=== PATIENT | female | born 1930 | race Caucasian/White ===

== ENCOUNTER → 2016-07-04 | Outpatient (CLI) | payer MEDICARE ==
--- NOTE | 2016-07-04 09:46 | US ---
EXAM DESCRIPTION: US BREAST UNILATERAL CLINICAL HISTORY: New mammographic nodule medial right breast 4 o'clock. COMPARISON: Screening evaluation 03/2016. FINDINGS: Directed ultrasound exam confirms the new mammographic nodule to correspond to a benign intramammary 4 mm lymph node. No sonographically suspicious finding. IMPRESSION: Benign exam. Mammographic nodule corresponds to a reactive lymph node right breast 4 o'clock. BIRAD CATEGORY: 2 BENIGN RECOMMENDATION: Routine annual mammography. Findings and recommendations were communicated to the patient by the technologist. Electronically signed by: Joyce Bauer 07/04/2016 09:44
== END ==
LOC: MAMMO 09:14
PROVIDERS: ATTEND Family Medicine
DX: R92.8 Other abnormal and inconclusive findings on diagnostic imaging of breast (principal)

== ENCOUNTER → 2016-09-24 | Outpatient (CLI) | payer MEDICARE | END | disposition home or self-care (01) | LOC: GMAL 10:34 | PROVIDERS: ATTEND Family Medicine | DX: D51.3 Other dietary vitamin B12 deficiency anemia (principal); Z79.899 Other long term (current) drug therapy; E55.9 Vitamin D deficiency, unspecified ==

== ENCOUNTER → 2017-01-16 | Outpatient (CLI) | payer MEDICARE | END | disposition home or self-care (01) | LOC: GMAL 10:32 | PROVIDERS: ATTEND Family Medicine | DX: D51.3 Other dietary vitamin B12 deficiency anemia (principal); R53.82 Chronic fatigue, unspecified; E55.9 Vitamin D deficiency, unspecified ==

== ENCOUNTER → 2017-02-13 | Outpatient (CLI) | payer MEDICARE | END | disposition home or self-care (01) | LOC: GMAL 16:37 | PROVIDERS: ATTEND Family Medicine | DX: R53.82 Chronic fatigue, unspecified (principal) ==

== ENCOUNTER → 2017-05-20 | Outpatient (CLI) | payer MEDICARE | END | disposition home or self-care (01) | LOC: GMAJS 11:52 | PROVIDERS: ATTEND Physician Assistant | DX: M79.89 Other specified soft tissue disorders (principal) ==

== ENCOUNTER → 2017-07-09 | Outpatient (CLI) | payer MEDICARE ==
--- NOTE | 2017-07-14 10:53 | MAM ---
EXAM DESCRIPTION: 3D Screening BILATERAL : Digital Mammography. CLINICAL HISTORY: 86 years Female SCREENING . No complaints. No family history breast cancer. Postmenopausal. No HRT. COMPARISON: 2-D digital screening bilateral studies 03/05/2016 and 06/29/2014. Report from prior examination also reviewed. TECHNIQUE: Bilateral CC and MLO projection full-field images, 3-D tomosynthesis digital mammographic technique. Also bilateral synthesized CC/ MLO full-field images. CAD not utilized. FINDINGS: The breast parenchymal density pattern is: Heterogeneously dense breast tissue, which may obscure small masses. No skin thickening or nipple retraction bilateral solitary microcalcifications. Skin mole superior outer anterior right breast. Focal asymmetry 1130 clock position middle third right breast is stable. No focal, stellate mass or density, focal asymmetry , and no suspicious microcalcifications bilaterally. Stable mammograms compared to prior study, taking into account differences in mammographic technique IMPRESSION: BI-RADS CATEGORY: 2 - BENIGN FINDINGS. FOLLOW UP: Routine digital bilateral screening, one year interval from July 2017. Written communication explaining the IMPRESSION and follow-up, will be mailed to the patient and referring health care provider. According to the [employer], yearly mammograms are recommended starting at age 40 and continuing as long as a woman is in good health. Any breast change noted on a breast self-exam should be reported promptly to the patient's healthcare provider. Breast MRI is recommended for women with an approximately 20-25% or greater lifetime risk of breast cancer, including women with a strong family history of breast or ovarian cancer and women who have been treated for Hodgkin's disease. A negative mammographic report should not delay tissue diagnosis in patients with significant clinical history or physical findings. Extremely dense breast tissue limits the sensitivity of digital mammography. Electronically signed by: Santos Watson MD 07/14/2017 10:53 AM [facility]
== END ==
LOC: MAMMO 12:38
PROVIDERS: ATTEND Family Medicine
DX: Z12.31 Encounter for screening mammogram for malignant neoplasm of breast (principal)

== ENCOUNTER → 2017-10-16 | Outpatient (CLI) | payer MEDICARE | LOC: NC 09:11 | PROVIDERS: ATTEND Family Medicine | DX: E78.5 Hyperlipidemia, unspecified (principal); E55.9 Vitamin D deficiency, unspecified; D51.9 Vitamin B12 deficiency anemia, unspecified; F01.50 Vascular dementia, unspecified severity, without behavioral disturbance, psychotic disturbance, mood disturbance, and anxiety; M17.0 Bilateral primary osteoarthritis of knee; M43.06 Spondylolysis, lumbar region ==

== ENCOUNTER → 2018-03-05 | Outpatient (CLI) | payer MEDICARE | LOC: GMAL 09:50 | PROVIDERS: ATTEND Family Medicine | DX: E55.9 Vitamin D deficiency, unspecified (principal); D51.9 Vitamin B12 deficiency anemia, unspecified; E78.5 Hyperlipidemia, unspecified; R63.4 Abnormal weight loss; M10.9 Gout, unspecified ==

== ENCOUNTER 2018-05-04 07:23 | Inpatient (IN) | payer MEDICARE ==
--- NOTE | 2018-05-04 07:42 | ED.PDOC ---
History of Present Illness - General Chief Complaint: General Stated Complaint: LLE pain and swelling Time Seen by Provider: 05/04/18 07:33 Source: family Exam Limitations: no limitations - History of Present Illness Initial Comments: PT BROUGHT IN BY EMS DUE TO LLE PAIN AND SWELLING X 1 DAY. PTS STATES THAT PT STARTED COMPLAINING OF PAIN IN THE LLE YESTERDAY BUT WAS ABLE TO AMBULATE FINE. PT WAS FOUND IN THE BATHROOM THIS MORNING IN SEVERE PAIN AND UNABLE TO AMBULATE BECAUSE OF IT. NO FALL WAS REPORTED. PT HAS DEMENTIA, THEREFORE, ROS AND HPI IS LIMITED. Timing/Duration: 24 hours, getting worse Severity: severe Improving Factors: immobilization Worsening Factors: movement Allergies/Adverse Reactions: Allergies milk Adverse Reaction (Uncoded 05/04/18 07:35) Home Medications: Ambulatory Orders Donepezil Hydrochloride [Donepezil HCl] 10 mg PO DAILY 05/04/18 Memantine HCl [Memantine Hydrochloride E] 28 mg PO DAILY 05/04/18 Review of Systems - Review of Systems Constitutional: Denies: chills, fever EENTM: Denies: nose congestion, throat pain Respiratory: Denies: cough, short of breath Cardiology: Denies: chest pain, syncope Gastrointestinal/Abdominal: Denies: diarrhea, vomiting Genitourinary: States: see HPI Musculoskeletal: States: see HPI, muscle pain. Denies: joint pain Skin: Denies: change in color, rash Neurological: States: see HPI Endocrine: States: see HPI Hematologic/Lymphatic: States: see HPI Past Medical History (General) - Patient Medical History Hx Dementia: Yes Hx Asthma: No Hx of COPD: No Hx Cardiac Disorders: No Hx Congestive Heart Failure: No Hx Hypertension: No Hx Diabetes: No Surgical History: Hysterectomy - Vaccination History Hx Influenza Vaccination: Yes Hx Pneumococcal Vaccination: Yes - Social History Hx Alcohol Use: No Hx Substance Use: No Hx Substance Use Treatment: No Hx Depression: No Family Medical History - Family History Mother Family History: Unknown Physical Exam - Physical Exam General Appearance: Alert, No apparent distress, Well Developed, Well Groomed, Well Hydrated Eye Exam: bilateral normal Ears, Nose, Throat: hearing grossly normal Neck: supple, normal inspection Respiratory: lungs clear, normal breath sounds, no respiratory distress Cardiovascular/Chest: regular rate, rhythm, no murmur Peripheral Pulses: dorsalis pedis,left: 2+, posterior tibialis,left: 2+ Gastrointestinal/Abdominal: non tender, soft Back Exam: normal inspection, no vertebral tenderness Extremity: other - TTP OF THE LEFT CALF, NO SIGNIFICANT SWELLING NOTED Neurologic: alert, disoriented x 3 Skin Exam: normal color, warm/dry Progress - Progress Progress: 05/04/18 09:33 PT RESTING COMFORTABLY, LABS AND DIAGNOSTICS DISCUSSED WITH AT BEDSIDE. - Results/Orders Results/Orders: Laboratory Tests 05/04/18 05/04/18 05/04/18 08:15 08:15 08:15 WBC 8.2 RBC 4.44 Hgb 13.0 Hct 40.6 MCV 91.5 MCH 29.3 MCHC 32.1 L RDW 13.6 Plt Count 232 MPV 8.0 Absolute Neuts (auto) 4.80 Absolute Lymphs (auto) 2.00 Absolute Monos (auto) 0.90 H Absolute Eos (auto) 0.30 Absolute Basos (auto) 0.10 Neutrophils % 58.9 Lymphocytes % 24.9 Monocytes % 10.9 H Eosinophils % 4.1 Basophils % 1.2 D-Dimer, Quantitative 10.77 H* Sodium 139 Potassium 4.0 Chloride 108 Carbon Dioxide 23 Anion Gap 12.0 BUN 22 H Creatinine 0.75 BUN/Creatinine Ratio 29.3 H Random Glucose 83 Serum Osmolality 280.0 Calcium 9.0 Total Bilirubin 0.5 AST 22 ALT 14 Alkaline Phosphatase 47 B-Natriuretic Peptide 34.3 Serum Total Protein 6.2 L Albumin 3.5 Globulin 2.7 Albumin/Globulin Ratio 1.3 - EKG/XRAY/CT EKG: Sinus - @71BPM, NL INTERVALS, LAD, no ST T wave changes - NO OLD FOR COMPARISON XRAY: chest - NO ACUTE FINDINGS PER RAD CT: CHEST CT Ordered: Yes CT Interpretation Call Back: Yes - FINDINGS DISCUSSED WITH DR. GALICIA, NEGATIVE FOR PE CT Interpretation Call Back Date: 05/04/18 CT Interpretation Call Back Time: 09:25 Departure - Departure Clinical Impression: Left leg DVT, Ambulatory dysfunction Time of Disposition: 09:36 Disposition: Admit Patient Condition: Fair Departure Forms: ED Discharge - Pt. Copy, Patient Portal Self Enrollment Referrals: Jose Oscar III, MD [Primary Care Provider] - 1-2 Weeks Home Medications: Ambulatory Orders Donepezil Hydrochloride [Donepezil HCl] 10 mg PO DAILY 05/04/18 Memantine HCl [Memantine Hydrochloride E] 28 mg PO DAILY 05/04/18 Critical Care Note - Critical Care Note Total Time (mins): 35 Decision To Admit - Decistion To Admit Decision to Admit Reason: Admit from ER Decision to Admit Date: 05/04/18 Decision to Admit Time: 09:36 - CASE DISCUSSED WITH ZURDO HAMILTON NP WHO AGREES TO ADMIT
--- NOTE | 2018-05-04 07:52 | RAD ---
EXAM DESCRIPTION: Chest,1 View CLINICAL HISTORY: 87 years Female, low spo2 COMPARISON: None. TECHNIQUE: Single frontal view of the chest. IMPRESSION: Cardiac silhouette is normal in size. Aorta is partially calcified and severely tortuous. Lungs appear hyperinflated. No focal or masslike opacity present. There is a 7 mm radiodensity overlying the right upper lung which may represent a calcified granuloma. No pleural effusion or pneumothorax. Thoracic spondylosis. Electronically signed by: Rashad Cortes MD 05/04/2018 7:51 AM [facility]
[2018-05-04] MEDS: SODIUM CHLORIDE 0.9% (FLUSH) 10 ML SYG IV PRN ×2 (08:01→09:15)
[2018-05-04] MEDS ORDERED: SODIUM CHLORIDE 0.9% 1000ML 1,000 ML IVS ONE (08:46)
--- NOTE | 2018-05-04 08:52 | US ---
EXAM DESCRIPTION: Venous Doppler sonogram left lower extremity CLINICAL HISTORY: Left lower extremity pain and swelling COMPARISON: [None Available.] TECHNIQUE: Venous Doppler left lower extremity deep venous system from the common femoral vein to the calf veins FINDINGS: Normal venous flow with color Doppler. Normal compressibility. Normal augmentation of flow with compression maneuvers IMPRESSION: No deep vein thrombosis left lower extremity Electronically signed by: Uri Okeefe MD 05/04/2018 8:50 AM [employer]
[2018-05-04] MEDS ORDERED: ENOXAPARIN SODIUM 60 MG/0.6 ML SYG SUBCU ONE ×2 (08:55→19:56)
--- NOTE | 2018-05-04 09:55 | HP ---
SUPERVISING PHYSICIAN: Uri Moody M.D. CHIEF COMPLAINT: Left lower extremity pain and swelling. HISTORY OF PRESENT ILLNESS: Ms. Correa is an 87 year-old female patient who was brought to the Emergency Department by EMS secondary to left lower extremity pain and swelling for the last 24 hours. Her notes that the patient started complaining of pain in the left lower extremity yesterday and was unable to ambulate as normal. She was found in the bathroom this morning in severe pain and due to inability to ambulate EMS was called. They denied any falls. The patient does have a history of severe dementia and therefore is a very poor historian limiting the review of systems and History of Present Illness. The majority of the past medical history is obtained from clinic records. In the E. R., she had a lower extremity Doppler of the left leg and per radiology interpretation noted there was DVT from the common femoral vein to the posterior tibial. She also had a chest CTA to rule out pulmonary embolism and per radiology interpretation showed the pulmonary arteries showing no evidence of acute pulmonary embolus with contrast distribution suggestive of decreased cardiac output with mild cardiomegaly. Also of note was a calcified nodule in the right upper lobe, stable since previous studies and chronic densities in the lung parenchyma and pleural changes were stable. There was also note of a 3.7 cm splenic mass not cystic and non-enhancing which could represent early hemangioma. There is also an incidental finding of a thyroid nodule measuring 1.2 cm. Laboratory studies showed she had a D-dimer that was elevated at 10.77 with PT and PTT within normal limits. CBC showed to be within normal limits with white count 8,200. Chemistries were unremarkable except for just a slightly elevated BUN of 22, troponin less than 0.02. BNP was 34. Urinalysis just showed small amount of blood, other than that was within normal limits. She was started on Lovenox with 1 mg per kg and now is going to be admitted for therapy for treatment of DVT with Coumadin and Lovenox. The patient at time of admission was showing to be in stable condition. PAST MEDICAL HISTORY: 1. Hyperlipidemia. 2. Osteoarthritis. 3. Chronic cholelithiasis. 4. Osteoporosis. PAST SURGICAL HISTORY: 1. Hysterectomy in 1968 with a unilateral bilateral salpingo-oophorectomy due to endometriosis. 2. Lazy eye correction in 1979. 3. 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 4. Left inguinal hernia in 1998. 5. Small bowel obstruction in 2010 secondary to incarcerated left inguinal hernia. 6. Bilateral knee replacements. 7. 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 8. Exploratory left groin with reduction and repair of incarcerated obturator hernia and incarcerated direct inguinal hernia. HOME MEDICATIONS: 1. Memantine 28 mg daily. 2. Donepezil 10 mg daily. ALLERGIES: MILK. NO KNOWN DRUG ALLERGIES. FAMILY HISTORY: Father at age 50 due to unknown cancer. Mother at age 85 secondary to a heart attack. She has 1 sister with an unknown medical history. She has 2 half sisters which are healthy. She has 2 sons who are healthy. SOCIAL HISTORY: The patient is retired, . Lives in [place]. She has never smoked tobacco. Does not drink or use illicit drugs. REVIEW OF SYSTEMS: CONSTITUTIONAL: Negative for any chills or fever. HEENT: Negative for nasal congestion, sore throat, ear aches. RESPIRATORY: Negative for cough or shortness of breath or wheezing. CARDIOVASCULAR: Negative for chest pains, syncopal episodes or palpitations. GASTROINTESTINAL: Negative for diarrhea, nausea, vomiting or abdominal pains. MUSCULOSKELETAL: As noted in History of Present Illness, left lower extremity pain more so in the calf. Acute appearance in the last 24 hours. Negative for any joint pain. SKIN: Negative for any change in color, rashes, lesions. NEUROLOGIC: As noted in history of present illness, advanced dementia with no reported seizure activity, ataxia or syncopal episodes. HEMATOLOGIC: Denies any easy bruising, abnormal bleeding. PHYSICAL EXAMINATION: VITAL SIGNS: Temperature 98.4, pulse 75, blood pressure 106/77, respirations 20 , satting 99% on room air. Admission weight 56.1 kg. GENERAL: The patient is resting comfortably. Appears to be in no acute distress. She appears to be well hydrated and well nourished. She is well kempt. She is pleasant but is confused, but at her baseline status per family. HEENT: Tympanic membranes are clear bilaterally. Oropharynx is pink and moist without any lesions. NECK: Supple with full range of motion. No jugular venous distention. CHEST: Lungs were clear to auscultation bilaterally without any rhonchi, wheezing or rales. CARDIOVASCULAR: Regular rate and rhythm without appreciable murmurs, gallops, or rubs. ABDOMEN: Soft, non-tender with positive bowel sounds. EXTREMITIES: Left lower calf was tender to palpation. No actual swelling was noted. There was no erythema. Right leg was non-tender to palpation. Distally dorsalis pedis pulses were 2+ bilaterally. Posterior tibial pulses were 2+ bilaterally. NEUROLOGIC: She is alert but disoriented times three which is her baseline. There are no obvious neurologic deficits. Cranial nerves II-XII were grossly intact as tested. There is no obvious nystagmus. Facial features were symmetrical. Extraocular movements are within normal limits on the right. The left was notably slow with the patient having a history of lazy eye and previous surgery. LABORATORY STUDIES: CBC showed white count 8,200, hemoglobin 13, hematocrit 40.6, platelet count 232,000. Differential showed to be without a left shift. D-dimer was elevated at 10.7, PT was 10 with INR of 1 and PTT of 24.6. Chemistries showed just a slightly elevated BNP at 22, creatinine was 0.75. All other liver functions were within normal limits. Calcium was normal at 9. She had a troponin that was less than 0.02. BNP was 34.3. Urinalysis just showed a small amount of blood, otherwise within normal limits. RADIOLOGY: Initially she had a chest x-ray in the E. R. and per radiology interpretation showed lungs hyperinflated. No focal or masslike opacities. There was note of a 7 mm irregular density overlying the right upper lung which could represent a calcified granuloma but no pleural effusions or pneumothorax. The aorta was partially calcified and severely tortuous. This was followed- up with a CT of the chest and per radiology interpretation there was no evidence of acute pulmonary embolus. Contrast distribution is suggestive of decreased cardiac output with mild cardiomegaly. There was also note of a calcified nodule right upper lobe stable since prior study and chronic densities in the lung parenchyma and pleural changes that are stable. There is also note of a 3.7 cm splenic mass not cystic and non-enhancing with blood/low soft tissue density which my represent early hemangioma. This was not seen on previous CT scan. Consideration for followup with CT scan of the abdomen noncontrast, contrast and delayed technique as well as possible consideration for MRI of the abdomen without and with gadolinium IV contrast. Multiple gallstones were shown, chronic. There is also note of 1.2 cm incidental finding for thyroid nodule which may have been present on previous studies. No followup imaging was recommended. She had a Doppler study of the left lower extremity with findings showing a DVT of the common femoral vein extending down to the posterior tibial. ASSESSMENT: 1. Deep venous thrombosis involving the left common femoral extending to the posterior tibial with the patient not previously being on any anticoagulants or aspirin, but having a history of very limited mobility and no evidence of a pulmonary embolus on CTA of the chest. 2. Advanced dementia. 3. History of hyperlipidemia 4. Osteoarthritis. 5. Chronic cholelithiasis without any evidence of acute cholecystitis. 6. Chronic osteoporosis. PLAN: The patient is going to be admitted to the hospital for therapy with Warfarin and Lovenox. She was given 1 mg per kg initially in the E. R. This will be continued every 12 hours and will start her on Warfarin at 5 mg and follow her PTs daily until she becomes therapeutic at least for 24 hours prior to discharge and transition to Warfarin therapy only. Certainly she will need to be on at least 3 month therapy course and followed closely by her primary care provider who is Dr. Oscar. I did talk to Dr. Oscar regarding choice of anticoagulation and he was okay with Coumadin. Certainly once she is discharged after short term treatment, can transition to possible monotherapy. Again, will continue to monitor her labs, including her PT and will anticipate length of stay probably to be anywhere from 3 to 5 days depending on how fast she gets therapeutic and can transition to outpatient management. Until she becomes therapeutic, will continue to monitor and treat as needed. Once discharged she will certainly need at least 2 to 3 months worth of anticoagulation and close followup with Dr. Oscar. #[id number] [facility]
--- NOTE | 2018-05-04 10:01 | CT ---
EXAM DESCRIPTION: CTA Chest: Computed Tomography. CLINICAL HISTORY: low spo2, (+) DVT, r/o PE COMPARISON: Ultrasound duplex left lower extremity deep venous system. CT scan of the chest and thorax with IV contrast 09/18/2009. TECHNIQUE: Spiral-axial scans at 2.5 x 2.5 mm intervals through the pulmonary arteries and chest after bolus infusion of IV contrast. 1.25 mm x 2.5 mm Axial reconstructions with lung algorithm. No reconstructions. 10 mm PE oblique 3-D reformatted images. No adverse reactions. Total Exam DLP: 677.91 mGy-cm. This exam was performed according to our departmental CT dose-optimization program which includes automated exposure control, adjustment of the mA and/or kV according to patient size and/or use of iterative reconstruction technique; to reduce radiation dose to as low as reasonably achievable (ALARA). FINDINGS: Pulmonary artery and great vessels: Main pulmonary artery, bilateral pulmonary arteries and lobar arteries were well visualized containing IV contrast. Decreasing density in the segmental and subsegmental pulmonary arteries bilaterally. This is commonly seen with decreased cardiac output. No filling defects. Minimal atherosclerosis in the proximal brachiocephalic vessels aortic arch and descending thoracic aorta. Coronary artery calcifications. Mild cardiomegaly. Lungs and airways: groundglass density anterior right upper lobe. Bibasilar posterior dependent atelectasis . 5 mm calcified nodule mid right upper lobe. Pleural parenchymal scars in the left lower lobe. Pleural spaces: Bilateral scattered focal thickening. Bilateral apical thickening. No effusion or pneumothorax bilaterally. Mediastinum and madhavi: Small lymph nodes. No soft tissue masses. Neck base, chest wall and axilla soft tissues: Small axillary lymph nodes. Inhomogeneous enhancement of the thyroid gland with large right lobe and 1.2 cm nonenhancing nodule. Upper abdomen: 3.7 cm nonenhancing circumscribed round mass in the medial spleen with mean Hounsfield density +28HU. Question of mild bilateral hydronephrosis. No free air or fluid in the peritoneal cavity. Multiple gallstones in the inferior gallbladder partially visualized with rim calcifications. Osseous structures: Spondylosis and scoliosis in the included cervical and thoracic spine. Mild to moderate arthrosis right glenohumeral joint. No blastic or lytic lesions. IMPRESSION: 1. CTA of the pulmonary arteries showing no evidence of acute pulmonary embolus. Contrast distribution is suggestive of decreased cardiac output. Mild cardiomegaly. 2. Calcified nodule right upper lobe stable since the prior study. Chronic densities in the lung parenchyma and pleural changes are also stable. 3. 3.7 cm splenic mass not cystic and nonenhancing. Blood/low soft tissue density may represent early hemangioma. Not seen on prior CT scan. Consider follow-up CT scan abdomen noncontrast, contrast, and delayed technique. Also consider as alternative, MRI abdomen without and with gadolinium IV contrast. Multiple gallstones are chronic. 4. 1.2 cm incidental thyroid nodule, may have been present on the prior study. No follow-up imaging is recommended. Reference: J Am [employer] Radiol. 2015 Jul;12(2): 143-50 Electronically signed by: Santos Watson MD 05/04/2018 10:00 AM [facility]
[2018-05-04] MEDS ORDERED: SODIUM CHLORIDE 0.9% (FLUSH) 10 ML SYG IV PRN (12:53)
[2018-05-04] MEDS ORDERED: ACETAMINOPHEN 325 MG TAB PO PRN (12:53)
[2018-05-04] MEDS ORDERED: ONDANSETRON INJ 4 MG/2 ML VIAL IV PRN (12:53)
[2018-05-04] MEDS ORDERED: MORPHINE SULFATE INJ 10 MG/ML VIAL IV PRN (12:53)
[2018-05-04] MEDS ORDERED: HYDROcodone 5MG/APAP 325MG 1 EA TAB PO PRN (12:53)
--- NOTE | 2018-05-04 13:19 | RAD ---
EXAM DESCRIPTION: Tibia/Fibula,Left: CR/DR/XR. CLINICAL HISTORY: 87 years Female, left leg pain s/p fall. Left lower extremity DVT on ultrasound earlier today. COMPARISON: Left lower extremity Doppler ultrasound of the deep venous system. TECHNIQUE: 2 views AP. FINDINGS: Decreased bone density. No fractures. Vascular groove in the lateral proximal mid tibia. Ankle mortise is intact. Total left knee arthroplasty with slight valgus. Normal bone density around the tibial component. Compression of soft tissues around the distal mid left tibia and fibula probably due to article of clothing. Ankle mortise is congruent. IMPRESSION: No acute bony abnormality left tibia and fibula. Electronically signed by: Santos Watson MD 05/04/2018 1:18 PM [employer]
--- NOTE | 2018-05-04 13:48 | US ---
EXAM DESCRIPTION: Venous,Lower Extremity RT: ULTRASOUND. CLINICAL HISTORY: Elevated D-Dimer COMPARISON: None Available. TECHNIQUE: Sifuentes-scale and doppler sonographic evaluation of the deep venous system of the right lower extremity. FINDINGS: Doppler evaluation shows normal color flow and normal phasicity and augmentation of the right common femoral vein, femoral vein, popliteal vein, greater saphenous vein, peroneal, and posterior tibial vein. The right lower extremity deep veins were completely compressible; normal occlusion with transducer pressure. Sifuentes-scale survey showed no echogenic thrombus within these veins. IMPRESSION: Duplex ultrasound evaluation of the right lower extremity deep venous system showing no evidence of thrombosis. Electronically signed by: Santos Watson MD 05/04/2018 1:47 PM [employer]
[2018-05-04] MEDS ORDERED: WARFARIN SODIUM 5 MG TAB PO ONE (20:00)
[2018-05-04] MEDS: IV SET AND CAP CHANGE INJ INJ SCH (20:07)
[2018-05-05] MEDS ORDERED: ENOXAPARIN SODIUM 60 MG/0.6 ML SYG SUBCU ONE (08:07)
[2018-05-05] MEDS: ENOXAPARIN SODIUM 60 MG/0.6 ML SYG SUBCU SCH ×2 (09:23→21:10)
[2018-05-05] MEDS ORDERED: WARFARIN SODIUM 5 MG TAB PO ONE (12:00)
--- NOTE | 2018-05-05 21:14 | PN ---
DATE: 05/05/18 SUPERVISING PHYSICIAN: Uri Moody M.D. SUBJECTIVE: The patient notes that the pain in her left leg has decreased overnight after restarting therapy. The patient has a long history of dementia and stays pleasantly confused, so I am not real sure how this pain is truly decreasing but she shows without any complications. She has not had any shortness of breath, nausea or vomiting, or any other complaints. OBJECTIVE: VITAL SIGNS: Temperature 98, pulse 77, blood pressure 115/74, respirations 18, satting 96% on room air. I's and O's show a negative balance of 1507 with 443 in, 1950 out. She has had 2 bowel movements. Weight is 68.0 kg. GENERAL: The patient is resting comfortably, watching TV with and son at bedside. She continues to be disoriented but this is her baseline according to her family. CHEST: Lung sounds remain clear to auscultation. HEART: Regular rate and rhythm. ABDOMEN: Soft, non-tender with positive bowel sounds. EXTREMITIES: No clubbing, cyanosis or edema. Left leg does remain tender on palpation. NEUROLOGIC: She remains disoriented but this is her baseline status. No other neurologic deficits are noted. LABORATORY: Repeat PT this morning showed an INR of 1.17 with PT of 11.7. RADIOLOGY: A tib/fib x-ray of the left leg showed no acute fractures or dislocations. Right lower extremity DVT study was without any signs of deep venous thrombosis per radiology interpretation. ASSESSMENT: 1. Deep venous thrombosis involving the left common femoral extending to the posterior tibial with the patient not previously being on any anticoagulants or aspirin, but having a history of very limited mobility and no evidence of a pulmonary embolus on CTA of the chest with the patient continued on weight based Lovenox and now on Coumadin but showing to not be therapeutic currently. 2. Advanced dementia. 3. History of hyperlipidemia 4. Osteoarthritis. 5. Chronic cholelithiasis without any evidence of acute cholecystitis. 6. Chronic osteoporosis. PLAN: Will continue to follow her PT and INR and administer right now 5 mg of Coumadin daily, and continue with Lovenox in efforts to get her therapeutic with INR between 2 and 3, which I anticipate will probably be either Friday or Friday at which point she can transition to outpatient management. When she does transition to outpatient management she certainly will need at least a 3 month course of therapy and close followup with her primary care physician, Dr. Oscar. Dr. Oscar can follow her INRs and at his discretion transition the patient to monotherapy if he feels that is appropriate after initial short course and the patient is showing to be stable. Until she transitions to outpatient management and once she is therapeutic with INR will continue to monitor and treat as needed. #[id number] MTDD
[2018-05-05] MEDS ORDERED: DONEPEZIL HCL 5 MG TAB ONE (23:02)
[2018-05-05] MEDS: NON-FORMULARY MEDICATION 1 EA MIS (Donepezil Hydrochloride [Donepezil Hcl] 10 MG) PO SCH (23:13)
[2018-05-05] MEDS: MEMANTINE HCL 28 MG PO SCH (23:13)
[2018-05-05] MEDS: SODIUM CHLORIDE 0.9% (FLUSH) 10 ML SYG IV PRN (23:14)
[2018-05-06] MEDS: NON-FORMULARY MEDICATION 1 EA MIS (Donepezil Hydrochloride [Donepezil Hcl] 10 MG) PO SCH ×2 (08:17→09:12)
[2018-05-06] MEDS: ENOXAPARIN SODIUM 60 MG/0.6 ML SYG SUBCU SCH ×2 (08:17→20:18)
[2018-05-06] MEDS: MEMANTINE HCL 28 MG PO SCH (08:22)
[2018-05-06] MEDS ORDERED: DONEPEZIL HCL 5 MG TAB ONE (08:24)
--- NOTE | 2018-05-06 08:48 | RAD ---
EXAM DESCRIPTION: Hip,Left 2 Views CLINICAL HISTORY: 87 years Female, left hip pain COMPARISON: None. TECHNIQUE: 2 views of the left hip. IMPRESSION: Bones appear mildly demineralized. Consider DEXA scan to assess for fracture risk not already performed. No acute displaced fracture. No hip dislocation. There is no soft tissue swelling or joint effusion. Mild osteoarthritic change of the left hip as evident by superior joint space narrowing and minimal subchondral sclerosis along the acetabular roof. Electronically signed by: Rashad Cortes MD 05/06/2018 8:47 AM [facility]
[2018-05-06] MEDS: DONEPEZIL HCL 5 MG TAB PO SCH (09:07)
[2018-05-06] MEDS ORDERED: WARFARIN SODIUM 5 MG TAB PO ONE (15:41)
--- NOTE | 2018-05-06 19:08 | PN ---
DATE: 05/06/18 SUPERVISING PHYSICIAN: Uri Moody M.D. SUBJECTIVE: The patient last night had significant agitation and required some Ativan which worked well. This morning she is very pleasant. She says she is not hurting anywhere. She does remain pleasantly confused and disoriented which is her baseline status according to her family. She has had no reported shortness of breath or chest pains. I did talk to the patient's in regards to her INR and the need to get her therapeutic, and the time frame this will occur continues to be a little frustrated but now after talking with him he seems to understand that she is getting closer to being therapeutic as well as I talked to Dr. Oscar in regards to the plan of care and they are both understandable of current plan of care at this point. OBJECTIVE: VITAL SIGNS: Temperature 98.9, pulse 68, blood pressure 145/80, respirations 18, satting 97% on nasal cannula at 1 liter showing 97% on room air. I's and O's showing a negative balance of 1266 with 400 in, 1666 out. Weight is 55.9 kg. She has had 1 bowel movement. GENERAL: The patient is resting comfortably. She appears to be in no acute distress. She remains pleasantly confused which is her baseline and answers questions easily, but sometimes inappropriately. CHEST: Lungs remain clear to auscultation. HEART: Regular rate and rhythm. ABDOMEN: Soft, non-tender. Positive bowel sounds. EXTREMITIES: Without any cyanosis, clubbing, or edema. NEUROLOGIC: She remains disoriented times three but this is her baseline status according to her family. There is no obvious neuromotor deficits. Facial features remain symmetrical. LABORATORY: INR today is 1.68 with PT of 16.7. RADIOLOGY: Hip x-ray showed to be without any acute displaced fractures. No hip dislocation. There was no noted soft tissue swelling or joint effusion. There was note of mild osteoarthritic changes in the left hip as evidenced by superior joint space narrowing and minimal subchondral sclerosis along the acetabular roof with the bones appearing to be mildly demineralized. ASSESSMENT: 1. Deep venous thrombosis involving the left common femoral vein extending into the posterior tibial vein with the patient not having been on any anticoagulation in the past or aspirin, and having a history of very limited mobility but no evidence of a pulmonary embolus on CTA of the chest at time of admission with the patient now on weight based Lovenox and bridge therapy to Coumadin but still showing to be subtherapeutic. 2. Subtherapeutic Coumadin levels. 3. Advanced dementia. 4. History of hyperlipidemia 5. History of osteoarthritis. 6. Chronic cholelithiasis without any evidence of acute cholecystitis. 7. Osteoporosis. PLAN: I have ordered daily PTs and INRs, and will continue with 5 mg Coumadin daily and Lovenox in efforts to get her to a goal therapy of INR between 2 and 3. If she progresses well, I anticipate she will probably be therapeutic tomorrow and could discharge possibly Friday after she demonstrates that she is staying stable with current dosing of her Coumadin. When she discharges she will certainly need continued management probably up to 3 months at least and close followup by Dr. Oscar as well as home health to help with assessment of her INR levels. Certainly at some point Dr. Oscar may opt to at his discretion transition the patient to monotherapy, but at this point the patient continues to be high risk fall and given the risk factors for Eliquis with missed dosing, certainly right now Coumadin is the better choice. Until she becomes therapeutic and can transition to outpatient management will continue to monitor and treat as needed. #[id number] MTDD
[2018-05-07] MEDS: MEMANTINE HCL 28 MG PO SCH (08:13)
[2018-05-07] MEDS: DONEPEZIL HCL 5 MG TAB PO SCH (08:13)
[2018-05-07] MEDS: ENOXAPARIN SODIUM 60 MG/0.6 ML SYG SUBCU SCH ×2 (08:14→20:07)
[2018-05-07] MEDS: IV SET AND CAP CHANGE INJ INJ SCH (11:46)
[2018-05-07] MEDS ORDERED: WARFARIN SODIUM 3 MG TAB PO ONE (12:00)
[2018-05-07] MEDS ORDERED: WARFARIN SODIUM 5 MG TAB PO SCH (12:00)
--- NOTE | 2018-05-07 17:35 | PN ---
DATE: 05/07/18 SUPERVISING PHYSICIAN: Uri Moody M.D. SUBJECTIVE: The patient is lying in bed asleep. She awakens easily. She has no complaints of nausea, vomiting, shortness of breath, chest pain, lower extremity pain or fever. We discussed that she may get to go home in the next day or 2 if her INR is therapeutic. OBJECTIVE: VITAL SIGNS: Temperature 98, heart rate 84, blood pressure 112/72, respiratory rate 18, O2 sat 94% on room air. RESPIRATORY: Essentially clear to auscultation bilaterally. CARDIAC: Regular rate and rhythm. GASTROINTESTINAL: Abdomen is soft, nondistended, non-tender. Bowel sounds are positive. EXTREMITIES: No cyanosis, clubbing or edema. Bilateral pedal pulses are piggyback at +2. Both lower extremities are without any problems. NEUROLOGIC: She is awake, alert and oriented times three. LABORATORY: INR is 2.48 today. All other labs and films have been reviewed via the EMR. ASSESSMENT: 1. Deep venous thrombosis involving the left common femoral vein extending into the posterior tibial vein with the patient not having been on any anticoagulation in the past or any aspirin. She has a history of very limited mobility but no evidence of a pulmonary embolus on CTA of the chest at time of admission. The patient is now on weight-based Lovenox and bridge therapy to Coumadin. Today her INR was therapeutic. 2. Advanced dementia. 3. History of hyperlipidemia 4. History of osteoarthritis. 5. Chronic cholelithiasis without any evidence of acute cholecystitis. 6. Osteoporosis. PLAN: We will continue present supportive care. I have ordered an INR tomorrow and if it is therapeutic she should be able to go home with close followup with her primary care physician, Dr. Oscar. She received 3 mg of Coumadin at lunch today and we will see how she does on her INR tomorrow for home dosage. She will most certainly need continued management probably for 3 to 6 months. Plan is for discharge tomorrow with Coumadin. We will continue to monitor closely and follow as needed. #[id number] [facility]
[2018-05-08] MEDS: ENOXAPARIN SODIUM 60 MG/0.6 ML SYG SUBCU SCH (08:27)
[2018-05-08] MEDS: MEMANTINE HCL 28 MG PO SCH (08:45)
[2018-05-08] MEDS: DONEPEZIL HCL 5 MG TAB PO SCH (08:45)
[2018-05-08 09:54] VITALS: BP 113/72; TEMP 98.4; O2SAT 96
[2018-05-08] MEDS ORDERED: WARFARIN SODIUM 2.5 MG TAB PO ONE (10:59)
--- NOTE | 2018-05-08 13:39 | DS ---
SUPERVISING PHYSICIAN: Uri Moody MD DISCHARGE DIAGNOSIS: 1. Deep venous thrombosis involving the left common femoral vein extending into the posterior tibial vein with the patient not having been on any anticoagulation in the past or any aspirin. She has a history of very limited mobility but no evidence of a pulmonary embolus on CTA of the chest at time of admission. The patient is now on weight-based Lovenox and bridge therapy to Coumadin. Today her INR was 3.03. 2. Advanced dementia. 3. History of hyperlipidemia 4. History of osteoarthritis. 5. Chronic cholelithiasis without any evidence of acute cholecystitis. 6. Osteoporosis. HISTORY OF PRESENT ILLNESS: This is an 87-year-old female patient who was brought to the Emergency Department by EMS secondary to left lower extremity pain and swelling for the previous 24 hours. Her noted that the patient complained of pain in the left lower extremity and was unable to ambulate as she normally does. She was found in the bathroom the morning on date of admission with inability to ambulate EMS was called. She denied that she had fallen. The patient does have a history of severe dementia and therefore is a poor historian. In the Emergency Room, she had a lower extremity Doppler of the left leg and per radiology interpretation, there was DVT from the common femoral vein to the posterior tibial. She also had a chest CTA to rule out pulmonary embolism and per radiologic interpretation showed the pulmonary arteries showing no evidence of acute pulmonary embolus. There was also a calcified nodule in the right upper lobe of the lungs, stable from previous studies and chronic densities in the lung parenchyma and pleural changes were stable. There was also a 3.7 cm splenic mass, not cystic and non- enhancing, which could represent early hemangioma. D-dimer that was elevated at 10.77 with PT/INR within normal limits. CBC was within normal limits with white count 8,200. Chemistries were unremarkable except for just a slightly elevated BUN of 22. Her was troponin less than 0.02. BNP was 34. Urinalysis showed small amount of urine blood, but other than that was within normal limits. She was started on Lovenox with 1 mg per kg b.i.d. and was admitted for treatment of DVT with Coumadin and Lovenox. The patient was admitted in stable condition. HOSPITAL COURSE: The patient was initially given 5 mg of Coumadin and over the next two days, she was subtherapeutic. Yesterday, her INR was 2.48 and her dosing of Coumadin was decreased to 3 mg. Today, her INR is 3.03 and she will receive 2.5 mg of Coumadin and will be discharged with 2.5 mg. She also had several x-rays done while in the hospital due to pain in her hip and her left leg. Her left hip x-ray showed no displaced fracture and no hip dislocation. Her bones appeared mildly demineralized and should consider a DEXA scan if not already performed. Her left tibia/fibula x-ray showed no acute bony abnormality of the left tibia and fibula. Her vital signs have been stable throughout her stay with her last set of vital signs showing temperature 98.4, heart rate 65, blood pressure 113/72, respiratory rate 18, O2 saturation 96% on room air. She will be discharged home today in stable condition. DISCHARGE PLAN: The patient will be discharged home in stable condition. She is to resume her previous medications as well as her previous diet. She has received some information about dietary changes while on Coumadin. She has [facility] and she will be readmitted to their services. They will do a PT/INR on Friday and results to me and if her Coumadin needs to be adjusted, I will do it at that time. She will see her primary care physician, Dr. Jose Oscar, on Friday at 2:45 PM. It is recommended that she have a PT/INR at that time and, again, if adjustment is needed, Dr. Oscar can adjust her Coumadin at that time. She is to call the hospital or followup with Dr. Oscar' office for any problems or complications. DISCHARGE MEDICATIONS: 1. Memantine. 2. Donepezil. 3. Warfarin 2.5 mg daily. #[id number] MTDD
== END 2018-05-08 12:36 | disposition home health service (06) | DRG 299 ==
LOC: ER 07:23 → MS 09:53
PROVIDERS: ADMIT Family Medicine; ATTEND Nurse Practitioner Family
DX: I82.412 Acute embolism and thrombosis of left femoral vein (principal); I26.99 Other pulmonary embolism without acute cor pulmonale; I82.442 Acute embolism and thrombosis of left tibial vein; F03.90 Unspecified dementia, unspecified severity, without behavioral disturbance, psychotic disturbance, mood disturbance, and anxiety; E78.5 Hyperlipidemia, unspecified; M19.90 Unspecified osteoarthritis, unspecified site; K80.20 Calculus of gallbladder without cholecystitis without obstruction; M81.0 Age-related osteoporosis without current pathological fracture; D73.9 Disease of spleen, unspecified; Z96.653 Presence of artificial knee joint, bilateral

== ENCOUNTER → 2018-05-10 | Outpatient (CLI) | payer MEDICARE | LOC: NC 13:07 | PROVIDERS: ATTEND Family Medicine | DX: I82.409 Acute embolism and thrombosis of unspecified deep veins of unspecified lower extremity (principal) ==

== ENCOUNTER → 2018-05-11 | Outpatient (CLI) | payer MEDICARE | LOC: NC 12:38 | PROVIDERS: ATTEND Family Medicine | DX: I82.409 Acute embolism and thrombosis of unspecified deep veins of unspecified lower extremity (principal) ==

== ENCOUNTER → 2018-06-11 | Outpatient (CLI) | payer MEDICARE ==
--- NOTE | 2018-06-11 10:08 | CT ---
EXAM DESCRIPTION: CT ABDOMEN WITHOUT AND WITH CONTRAST CLINICAL HISTORY: SPLENIC MASS COMPARISON: Gallbladder sonogram septemberAugust 07, 2015, CT chest angiography May 04, 2018 TECHNIQUE: CT of the abdomen is performed prior to and during IV bolus administration of the usual in dome dose of nonionic iodinated contrast. No oral contrast. FINDINGS: The lung bases are clear of infiltrate with discoid atelectasis in the left lung base. Heart is mildly enlarged. Lower breast tissue appears relatively symmetrical. Liver is normal in size and parenchymal appearance on precontrast images. Small cyst in the posterior right lobe of the liver is incidentally noted 8 mm. This was seen on the previous CT May 04, 2017. Additional small cysts in the left lobe of liver are present anteriorly in the 4 to 8 mm size range. Multiple calcified stones in the gallbladder. In the posteromedial aspect the spleen, a lesion is seen which is sharply circumscribed measuring 4 cm in diameter with a density of 22 Hounsfield units. This was seen on the previous study May 04, 2018. Small cyst at the lower pole the right kidney measures 2.6 cm. Pancreas and kidneys and adrenal glands are otherwise unremarkable. There is no lymphadenopathy, inflammation, or free fluid observed. After IV contrast, repeat helical scanning through the upper abdomen was performed. Normal enhancement of hepatic and splenic parenchyma. The density of the splenic lesion of 32 Hounsfield units on one measurement and 18 Hounsfield units on another measurement strongly argues for a splenic cyst. There is nonenhancement of the lower pole right renal lesion consistent with a simple cyst. Hepatic lesions are nonenhancing are markedly enhancing consistent with cysts or small hemangiomas, benign in appearance. Normal enhancement of renal cortex bilaterally which appears mildly thinned consistent with senescent changes. No aortic aneurysm. Delayed images through the upper abdomen show normal enhancement of the cortex and medulla of the kidneys with positive contrast accumulation in the intrarenal collecting systems and proximal ureters. On the delayed images, the splenic lesion measures 25 Hounsfield units in density consistent with nonenhancement. The pelvis is not included on the study. On delayed images, hepatic lesions in the left lobe of the liver are nonenhancing consistent with cysts. Advanced degenerative changes in the lower lumbar spine. Coronal and sagittal reformatted images of the upper abdomen confirm the findings. Patient had a previous right upper quadrant abdominal sonogram in August 2015 which showed shadowing gallstones in the gallbladder lumen. The left upper quadrant was not included on that exam. IMPRESSION: Nonenhancing lesions in the lower pole of the right kidney and in the spleen most consistent with cysts. Few small hepatic cysts. Gallstones. This exam was performed according to our departmental dose-optimization program, which includes automated exposure control, adjustment of the mA and/or kV according to patient size and/or use of iterative reconstruction technique. Electronically signed by: Aly Coronado MD 06/11/2018 10:07 AM [facility]
== END ==
LOC: MRI 07:12
PROVIDERS: ATTEND Family Medicine
DX: R16.1 Splenomegaly, not elsewhere classified (principal); D73.9 Disease of spleen, unspecified; K80.20 Calculus of gallbladder without cholecystitis without obstruction; N28.9 Disorder of kidney and ureter, unspecified; K76.89 Other specified diseases of liver